=== PATIENT | male | born 1985 ===

== ENCOUNTER 2025-03-18 16:41 | Inpatient (IN) | payer MEDICAID ==
[~2025-03-18] VITALS: Ht 167.6 cm; Wt 110.9 kg
--- NOTE | 2025-03-18 16:46 | ELECTROCARDIOGRAPH REPORT ---
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
[2025-03-18] MEDS: HEPARIN DRIP INITAL BOLUS --- DO NOT GIVE/ORDER MC ONE ×2 (17:02→17:47)
--- NOTE | 2025-03-18 17:06 | Physician Documentation ---
History of Present Illness ~ Chief Complaint: Chest Pain Stated Complaint: FEVER Time Seen by MD: 16:47 Mode of Arrival: EMS, Stretcher HPI This is a 39-year-old gentleman with a known prior history of polysubstance abuse, coronary artery disease, status post NSTEMI several years ago with a stent placed by Dr. Toro at [facility], presents for evaluation of NSTEMI diagnosed at [facility]. He went there because earlier this morning he developed sharp chest pain accompanied by shortness a breath. The particular palliating or aggravating factors. He has a normal EKG, normal troponin and a renal presentation, 2nd troponin pain back as one. It did attempt to treat his pain with the nitroglycerin. We received a call from suddenly with the hospital after the patient had arrived when his repeat troponin is 2.78. At the time of my examination the patient is pain-free. He is on methadone, but denies use of sympathomimetics at this time. Medication Reconciliation Allergies: Coded Allergies: No Known Allergies (Unverified , 03/18/25) Review of Systems ROS 10 point review of systems was performed and unless noted above in HPI is negative for acute process/complaint. Physical Exam Vital Signs: Heart Rate: 69, Respiratory Rate: 13, BP: 149/90, Weight: 110.900 Oxygen Flow Rate: 0 Physical Exam GENERAL: Awake, alert, oriented, GCS 15, no apparent distress, non-toxic appearing, answers questions, follows commands appropriately. Examined in bed 14. Immediately upon arrival. HEENT: Atraumatic, normocephalic, pupils equal, extraocular muscles intact, sclerae anicteric, mucus membranes moist, oropharynx is clear, no stridor. NECK: supple, full active range of motion, trachea midline, no thyromegaly, no lymphadenopathy, no JVD. CARDIOVASCULAR: regular rate/rhythm, no murmurs/gallops/rubs, Pulses are 2+ in all extremities and symmetric. Capillary refill less than 2 seconds. PULMONARY: Nonlabored, good air movement ,no respiratory distress, speaking in full sentences, clear to auscultation bilaterally, no wheezing, no ronchi, no rales, no accessory muscle use. GASTROINTESTINAL: Soft, non-tender, non-distended, normal active bowel sounds, no organomegaly, no pulsatile masses, no CVA tenderness. NEUROLOGIC: Lucid with normal mental status. Normal facial symmetry. Moves all extremities symmetrically and with purpose. No truncal ataxia. Speech is fluid without evidence of dysarthria or aphasia, no focal deficits appreciated. MUSCULOSKELETAL: There is full range of motion of all extremities. There is no joint pain or joint swelling or joint erythema. There is no muscle pain or tenderness or swelling. EXTREMITIES: warm, well-perfused, no cyanosis, no clubbing, no edema, no acute deformities. Skin: warm, dry, no rashes or lesions, no jaundice, no petechiae orpurpura. No ecchymosis. PSYCHIATRIC: Normal affect, normal insight, normal concentration. Focused exam: Gynecomastia noted Progress Results/Orders Results/Orders Orders - CAM BARBOZA DO Chest,Single View (03/18/25 16:43) Monitor (03/18/25 16:43) Saline Lock (03/18/25 16:43) Oxygen (03/18/25 16:43) Cbc/Diff (03/18/25 16:43) BMP (03/18/25 16:43) PBNP (03/18/25 16:43) Hs Troponin I W Calculations (03/18/25 16:43) Hs Troponin I W Calculations (03/18/25 18:43) Hs Troponin I W Calculations (03/18/25 19:43) Cardiac Ptt (03/18/25 16:43) Pt Inr (03/18/25 16:47) PTT (03/18/25 16:47) Heparin 25,000 Unit/250ml Bag (Heparin 2 (03/18/25 16:50) Heparin 10,000 Unit/Ml 1ml (Heparin 10,0 (03/18/25 16:50) Cbc/Diff (03/19/25 03:00) Cbc/Diff (03/20/25 03:00) Cbc/Diff (03/21/25 03:00) Cbc/Diff (03/22/25 03:00) Cbc/Diff (03/23/25 03:00) Completed Orders - CAM BARBOZA DO Electrocardiogram (03/18/25 16:43) No Initial Heparin Drip Bolus (No Initia (03/18/25 16:50) No Initial Heparin Drip Bolus (No Initia (03/18/25 16:50) Vital Signs 03/18/25 03/18/25 16:43 16:56 Pulse 69 Resp 19 13 B/P (MAP) 149/90 O2 Flow Rate 0 Medical Decision Making Findings Facility Status: ED Holds, E process The plan was discussed with the patient, who demonstrates clear understanding of the plan and is in agreement with the plan unless otherwise noted in the chart. All questions have been answered, all concerns were addressed unless otherwise documented. I was available throughout their ED stay for frequent reassessment and questions. Differential Diagnoses (considered and possible or likely): [Differential diagnosis considered includes chest wall pain, pleurisy, pneumonia, pulmonary e mbolus, GERD, esophagitis, gastritis, anxiety, stress reaction, costochondritis, acute coronary syndrome, aortic dissection, pericarditis, myocarditis, or pneumothorax.] ??Differential Diagnoses (considered and unlikely, not requiring evaluation currently): [Aortic/great vessels dissection was considered but it is unlikely based on absence of ripping, tearing, migratory chest pain, absence of syncope or focal neurologic deficits, physical examination indicating equal and symmetric pulses.] MDM Data Please see [facility] for the following: Independent Historians and external Records Review. Historian: [Patient] Independent Historians: ?[Records from [facility]] Medication Management: [Reviewed medication list] Social History and determinants: [Reviewed] Please see the body of the note for the following: Any independent interpretations of ECG, imaging studies. All vitals signs/haemodynamics, ordered tests were independently reviewed and interpreted by myself. Nursing triage complaint and vitals reviewed, additional nursing notes were reviewed as available and I agree unless otherwise noted or documented in contradiction in the chart Vital Signs: Independently reviewed Labs: Independently interpreted Imaging: Independently interpreted Old Medical Records: Independently reviewed, see [facility] for relevant summary and information Pulse Oximetry: [97%] interpreted as [normal on room air] by me [Professor Of Fine Art: [Regular Rate, Regular rhythm, no ectopy, NSR] reviewed and interpreted by me] Additionally notably showing: [Hemodynamically stable] Tests considered but not ordered include: [Catheterization can be done on an inpatient basis] Social Determinants of Health Impact: Patient was evaluated in [facility] [place] access to healthcare due to below par ratio of patient to medical providers. [] Comorbid Conditions Impacting Present Evaluation and Care/Treatment: [Known CAD] Management Discussions with other Healthcare Providers: [Hospitalist regarding admission] Treatment and Disposition Medication Management (Given or considered): [Heparin drip]. See EMR for details Consideration for Hospitalization/Escalation/Deescalation of Care: Admission for observation has been considered, and appears to be necessary other management of his NSTEMI ?ED Course:?[No clinical deterioration. Remains pain-free.] ?Shared decision making:?[] Code status:?FULL Please see the full Electronic Medical Record for full details of nursing documentation, medications list, other records of complete past medical history and conditions, vital signs, laboratory studies, and any radiologic study interpretations by radiologists. Portions of this note were completed using [employer] dictation software and as a result there may exist minor errors in brennanstevie juan francisco. I have reviewed elements of past family and social history and agree as included in note. Departure Disposition: ADMITTED INPATIENT Impression: Primary Impression: NSTEMI (non-ST elevated myocardial infarction) Additional Impressions: Elevated d-dimer Methadone dependence Condition: Stable Referrals: NO PRIMARY CARE PROVIDER (PCP) Critical Care Note Critical Care Note CRITICAL CARE TIME: [ 35] minutes Treatments/Evaluations: Close monitoring and treatment of unstable vital signs, cardiorespiratory, and neurologic status, while maintaining tight balance of fluid, respiratory, and cardiac interventions. This time includes discussing the case with the patient and the patients family. This time does not include all procedures stated elsewhere in this record. This time also includes reviewing old records, labs and radiological studies. This time includes examining and re- examining the patient. Additionally, this time also includes arranging care with admitting and consulting physicians. Signature Scribe Signature: No scribe Attestation: This note accurately reflects clinical decisions, work performed by myself, Cam Barboza, CAM YU DO Mar 18, 2025 17:06
[2025-03-18 17:20] LABS: MEAN PLATELET VOLUME 10.4 FL (7.4-10.4); RED CELL DISTRIBUTION WIDTH 14.0 % (11.5-14.5)
--- NOTE | 2025-03-18 17:25 | RADIOLOGY REPORT ---
EXAM: DI CHEST,SINGLE VIEW HISTORY: CP TECHNIQUE: 1 view of the chest COMPARISON: None FINDINGS/IMPRESSION: LUNGS: No pleural effusion, consolidation, or pneumothorax MEDIASTINUM: Unremarkable BONES: No acute osseous abnormality OTHER: None
[2025-03-18] MEDS ORDERED: potassium Cl 40MEQ/1/2NS 520ml 520 ML IV PRN (17:30)
[2025-03-18] MEDS ORDERED: magnesium sulf-water 4G/100mL 100 ML IV PRN (17:30)
[2025-03-18] MEDS ORDERED: mag hydrox/Alum hydrox/simeth 30ml oral suspension PO PRN (17:30)
[2025-03-18] MEDS ORDERED: HYDROcodone/acetaminophen 5mg/325mg tablet PO PRN (17:30)
[2025-03-18] MEDS ORDERED: potassium Cl 20 mEq SR tablet PO PRN ×2 (17:30)
[2025-03-18] MEDS ORDERED: heparin 10,000 units/1 ML INJ IV PRN (17:30)
[2025-03-18] MEDS ORDERED: heparin 25,000 UNIT/250ml bag 250 ML IV PRN (17:30)
[2025-03-18] MEDS ORDERED: magnesium hydroxide 30ml (MOM) UD suspension PO PRN (17:30)
[2025-03-18] MEDS ORDERED: magnesium sulf-water 2g/50mL 50 ML IV PRN (17:30)
[2025-03-18 17:41] LABS: CREATININE 0.76 MG/DL (0.60-1.10); PRO BRAIN NATRIURETIC PEPTIDE 213 PG/ML (0-125); TOTAL CARBON DIOXIDE 31.9 MMOL/L (24-32); eCRCL 120 ML/MIN; eGFR > 90 ML/MIN
[2025-03-18] MEDS: PERFLUTREN PROTEIN-A MICROSPHR (Optison) 0.22 MG/ML 3ML VIAL IV ONE (17:51)
[2025-03-18] MEDS: normal saline 1000ml 1,000 ML IV SCH (17:51)
[2025-03-18] MEDS: MESSAGE TO NURSING IV ONE ×2 (17:57→22:10)
[2025-03-18] MEDS: heparin 25,000 UNIT/250ml bag 250 ML IV PRN (17:58)
[2025-03-18] MEDS ORDERED: CLOP-32 PO (18:00)
[2025-03-18] MEDS ORDERED: CARV-50 PO (18:00)
[2025-03-18 18:20] LABS: APTT 30 SECONDS (22-32); INR 1.0 INR
--- NOTE | 2025-03-18 18:40 | CARDIOLOGY REPORT ---
APPROVED REPORT EXAM: Comprehensive 2D, Doppler, and color-flow Echocardiogram. Patient Location: ER RM 14 Blood Pressure: 149/90 mmHg Heart Rate: 61 bpm Rhythm: Sinus Indications Coronary Artery Disease Myocardial Infarction Polysubstance abuse HX of NSTEMI Stent x 1, 10/06/23 STORES DESPATCH HAND: Jenae Toro MD NO Previous ECHO 2D Dimensions LA Diam 3.0 cm IVSd 1.2 (0.7-1.1cm) LVDd 4.5 cm PWd 1.1 (0.7-1.1cm) IVSs 1.4 (0.8-1.2cm) LVDs 2.5 (2.5-4.0cm) PWs 2.0 (0.8-1.2cm) LVOT Diameter 2.20 (1.8-2.4cm) LVEF(%) 75.6 (>50%) Ao Asc Diam. 3.45 cm IVC 15.48 mm FS (%) 44.3 % SV 71.0 ml CO 4.3 L/min M-Mode Dimensions Left Atrium(MM) 3.01 (2.5-4.0cm) Aortic Root 3.34 (2.2-3.7cm) Aortic Cusp Exc 1.81 (1.5-2.0cm) MV EPSS 2.0 (<0.5cm) Aortic Valve AoV Peak Bj. 115.1 cm/s AoV VTI 23.6 cm AO Peak GR. 5.3 mmHg AO Mean GR. 3 mmHg LVOT VTI 20.59 cm LVOT Peak Bj. 87.9 cm/s SHANNAN(VTI)/BSA 3.30 cm2/m2 SHANNAN (VTI) 3.30 cm2 Mitral Valve MV E Velocity 93.0 cm/s MV Peak Gr. 8 mmHg MV DECEL TIME 208 ms MV A Velocity 115.5 cm/s MV PHT 60 ms E/A Ratio 0.8 MVA (PHT) 3.67 cm2 MV VMax 138.6 cm/s TDI Lateral E' P. V 5.96 cm/s E/Lateral E' 15.6 Pulmonary Valve PAEDP 13.34 mmHg Tricuspid Valve TR P. Velocity 131 cm/s RAP ESTIMATE 10 mmHg TR Peak Gr. 7 mmHg RVSP 17 mmHg LEFT VENTRICLE Normal LV size and function. Mild concentric hypertrophy. LVEF is 65-70%. RIGHT VENTRICLE Right ventricle is mildly dilated with adequate funciton. ATRIA The left atrium size is normal. AORTIC VALVE Trileaflet AV appears mildly sclerotic without stenosis. No insufficiency. MITRAL VALVE Mitral valve leaflets are thickened with mild mitral annular calcification. No stenosis. Trace regurgitation. TRICUSPID VALVE The tricuspid valve is normal in structure with trace regurgitation. PULMONIC VALVE The pulmonary valve is normal in structure with mild insufficiency. GREAT VESSELS The aortic root is normal in size. The ascending aorta is normal in size. The IVC is normal in size and collapses >50% with inspiration. PERICARDIUM Normal pericardium. No effusion. Other Information Study Quality: Adequate Conclusion Normal LV size and function. Mild concentric hypertrophy. LVEF is 65-70%. Right ventricle is mildly dilated with adequate funciton. The left atrium size is normal. Trileaflet AV appears mildly sclerotic without stenosis. No insufficiency. Mitral valve leaflets are thickened with mild mitral annular calcification. No stenosis. Trace regurgitation. The tricuspid valve is normal in structure with trace regurgitation. The pulmonary valve is normal in structure with mild insufficiency. Normal pericardium. No effusion.
[2025-03-18] MEDS: K and/or MAG REPLACEMENT MC SCH (20:00)
[2025-03-18] MEDS: docusate sod 100mg capsule PO SCH (20:00)
[2025-03-18 21:16] LABS: LDL CHOLESTEROL 154 MG/DL (50-100)
[2025-03-18 21:34] LABS: CHOL/HDL RATIO 6.6 (0.00-4.99)
--- NOTE | 2025-03-18 21:51 | HISTORY AND PHYSICAL ---
History & Physical Providers to CC ~ History of Present Illness Reason for Admit\Complaint: NSTEMI History of Present Illness This is a 39-year-old male who has known coronary artery disease and had 100% proximal LAD lesion as well as multiple other lesions and angioplasty and stent occurred on 10/07/[address] Toro principle software engineer's. Is transferred today from [facility] ED the patient had chest pain upon rising this morning that was substernal and was mild and resolved with nitroglycerin the patient denies any diaphoresis, nausea or shortness of breath. At [facility] the patient is troponin was 2.78 and the patient was transferred to [facility] on a heparin drip- the patient's high sensitivity troponin was 5129 in his up trending the patient is triglycerides of 171 with a total cholesterol of 238 and an LDL of 154. I did consult Dr. Espinal principle software engineer- the patient received atorvastatin Allergies: Coded Allergies: No Known Allergies (Unverified , 03/18/25) Home Medications Home Medications Active Reported Coreg* (Carvedilol) 12.5 Mg Tablet 1 Tab PO Q12H 30 Days Plavix (Clopidogrel Bisulfate) 75 Mg Tablet 75 Mg PO DAILY Do not stop medication unless instructed by prescriber. Past Medical History Past Medical History Coronary artery disease Acute [place] Cardiomyopathy Hypertension Obesity Kidney stones Past Surgical History Surgical History Comment Pilonidal cyst surgery Cystoscopy for kidney stones Family History Family History: FH: stomach cancer Maternal grandfather Past Social History Social History Comment Smokes 3rd a pack of cigarettes a day, denies alcohol use, history of heroin use quit three years ago, last methamphetamine use was in October of 2023. Full code status ROS ROS Except for positives in the HPI the rest of the 14 point review systems is negative Exam Vitals: Vital Signs Date Time Temp Pulse Resp B/P (MAP) Pulse Ox O2 Delivery O2 Flow Rate FiO2 03/18/25 19:24 98.0 63 18 124/78 (93) 97 0 03/18/25 19:19 Room Air* 21 General: Gen. No acute distress alert and oriented 4, obese Lungs clear to ascultation bilaterally, no wheezes rales or rhonchi appreciated Heart normal sinus rhythm no murmurs rubs or clicks noted Abdomen soft nontender bowel sounds are normoactive Lower extremities no clubbing cyanosis, nor edema appreciated bilaterally Diagnostic Data Last Recorded Lab Results: 03/18/25 1656 03/18/25 1656 Diagnostic Data: Laboratory Tests Test 03/18/25 16:56 Prothrombin Time 10.4 SECONDS (9.0-12.0) INR International Normalized Ratio 1.0 INR Activated Partial Thromboplast Time 30 SECONDS (22-32) APTT (Heparin Protocol) 30 SECONDS (45-60) L Coagulation Comments Counseling Services Smoking & Tobacco Cessation: 3-10 Minutes Advance Care Planning Advanced Care plannin - 30 Minutes Problems: (1) NSTEMI (non-ST elevated myocardial infarction) Status: Acute Additional Plan # NSTEMI Continue serial troponins Echocardiogram is ordered On a heparin drip Given aspirin as well Dr. Espinal principle software engineer will evaluate the patient in the morning # cardiomyopathy Echocardiogram Med rec is pending # history of heroin use disorder On methadone to be continued # hyperlipidemia Continue atorvastatin increased to 80 mg # Tobacco abuse-I spent 12 minutes discussing smoking cessation with the patient including the risk of continuing smoke: Lung cancer, stroke, heart attack, #1. Cause of erectile dysfunction, The expense of smoking cigarettes and how cigarettes have been scientifically engineered to be as addictive as humanly possible. The patient has accepted a 14 mg nicotine patch. I spent a total of 17 minutes on reviewing various resuscitative measures/ ACP with the patient at the time of admission. The patient has decided on full code status Date of Service: Mar 18, 2025 Billing Provider: ABE ESTRADA DO Common Visit Codes: 10127-EMKOMRT INP/OBS CARE (HIGH) Secondary Visit Codes: 77952-SXIMA CHNG SMOKING >10MIN, 00055-[id number] CARE PLAN 30 MINUTES ABE ESTRADA DO Mar 18, 2025 21:51
[2025-03-18] MEDS: heparin 10,000 units/1 ML INJ IV PRN (22:10)
[2025-03-18] MEDS: aspirin 325mg tablet, delayed-release (Ecotrin) PO ONE (22:13)
[2025-03-18 22:50] VITALS: BP 150/84; PULSE 66; RESP 16; TEMP 97.9; O2SAT 97
[2025-03-19] VITALS (18 sets, daily range): BP systolic 117–154; BP diastolic 67–98; PULSE 63–84; RESP 12–19; TEMP 97.2–98.2; O2SAT 93–99
[2025-03-19 05:06] LABS: MEAN PLATELET VOLUME 10.5 FL (7.4-10.4); RED CELL DISTRIBUTION WIDTH 14.4 % (11.5-14.5)
[2025-03-19 05:22] LABS: CHOL/HDL RATIO 6.3 (0.00-4.99); CREATININE 0.76 MG/DL (0.60-1.10); LDL CHOLESTEROL 159 MG/DL (50-100); TOTAL CARBON DIOXIDE 26.6 MMOL/L (24-32); eCRCL 120 ML/MIN; eGFR > 90 ML/MIN
[2025-03-19] MEDS: MESSAGE TO NURSING IV ONE ×3 (05:58→21:31)
[2025-03-19] MEDS ORDERED: METH10OR11 PO (07:09)
[2025-03-19] MEDS: nicotine 14mg patch - 24hr TD SCH (08:15)
[2025-03-19] MEDS: methadone 10mg tablet PO SCH (09:38)
[2025-03-19] MEDS: methadone 5mg tablet PO SCH (10:01)
--- NOTE | 2025-03-19 10:57 | ELECTROCARDIOGRAPH REPORT ---
[facility] Test Date: 2025-03-19 Test Time: 10:55:36 Pat Name: DELANEY MCCALL Department[facility] Patient ID: [facility]-[id number] Room: [place] [address] [address] Gender: M Floor Associate: : 1985 Requested By: ERIN MURGUIA Order Number: [id number] Reading MD: Dr. JONG Murguia Measurements Intervals [place] Rate: 60 P: 39 MA: 166 QRS: 36 QRSD: 104 T: 95 QT: 483 QTc: 483 Interpretive Statements Sinus rhythm Nonspecific T abnormalities, lateral leads ST elev, probable normal early repol pattern Borderline prolonged QT interval Electronically Signed On 03-19-2025 16:49:[address] JONG Murguia Please click the below link to view image of tracing.
--- NOTE | 2025-03-19 12:01 | CONSULTATION REPORT - RESIDENT ---
Consult Providers to CC Resident Creating Document: RADAMES DISHAJIGAR Orellana RES History of Present Illness Reason for Admit\Complaint: Chest pain History of Present Illness 39-year-old male patient came to the hospital with chief complaint of chest pain. The patient was transferred from [facility] due to chest pain and evidence of rising troponins. The patient describes that this chest pain is at the level of the left side of the chest, which started yesterday after he woke up. The patient states that this is the 1st time that he had experienced this pain, scaled as 6/10 in intensity without radiation, similar but less intense from the chest pain that he experienced when he had a coronary artery disease. As per medical records from coronary angiogram that the patient underwent at [facility] Dr. Toro he has 100% proximal LAD occlusion involving the takeoff of a small diagonal. In addition there is a 35% ostial narrowing in the LAD and areas of mild disease in the mid to distal LAD as well. The patient received an stent 3.5 x 22 mm travis [employer] drug-eluting stent and based on OCT. And other areas of disease including the mild proximal circumflex stenosis and moderate disease in two branches of the principal obtuse marginal was found. RCA was 50-55% midvessel stenosis and some areas of [id number] disease in the posterolateral artery. We were consulted due to the presence of chest pain with a elevated troponins. Allergies: Coded Allergies: No Known Allergies (Unverified , 03/18/25) Home Medications Home Medications Active Reported Methadone (Methadone Hcl) 10 Mg/Ml Oral.conc 95 Mg PO DAILY Coreg* (Carvedilol) 12.5 Mg Tablet 1 Tab PO Q12H 30 Days Plavix (Clopidogrel Bisulfate) 75 Mg Tablet 75 Mg PO DAILY Do not stop medication unless instructed by prescriber. Past Medical History Past Medical History Coronary artery disease Acute [place] Cardiomyopathy Hypertension Obesity Kidney stones Past Surgical History Surgical History Comment Pilonidal cyst surgery Cystoscopy for kidney stones Family History Family History: FH: diabetes mellitus MOTHER FH: stomach cancer Maternal grandfather FH: stroke FATHER Exam Vitals: Vital Signs Date Time Temp Pulse Resp B/P (MAP) Pulse Ox O2 Delivery O2 Flow Rate FiO2 03/19/25 11:00 97.2 64 16 119/68 (85) 99 Room Air 03/19/25 08:25 0.0 21 Physical exam: General: Well alert, well oriented, not confused, not agitated, not in acute distress, well cooperated during the physical. HEENT: Conjunctive are pink, sclerae clear, no icterus, pupil is equal in both sides, reactive to light, no ear discharge, no pharyngeal erythema or an edema. Neck: Supple, no JVD, no lymphadenopathy and thyromegaly. Chest: Equal air entry on both lungs, no additional sounds no rhonchi no wheezing at the moment. Cardiovascular: S1-S2 regular sinus rhythm and, regular rate, no gallops, no rubs, no murmurs Abdomen: No visible peristalsis, Bowel sounds present on auscultation, soft, nontender, no guarding, no rigidity Extremities: No obvious deformities, no pitting edema bilaterally, capillary refill intact, peripheral pulsations are intact on both sides Central Nervous System: No focal neurological deficits, no motor or sensory weakness in all 4 extremities, could move all 4 extremities, 2+ deep tendon reflexes, negative Babinski. Musculoskeletal: No joint swelling, deformities, inflammations, and no scoliosis and back tenderness Skin: Warm and dry. Diagnostic Data Last Recorded Lab Results: 03/19/25 0445 03/19/25 0445 Diagnostic Data: Laboratory Tests Test 03/18/25 16:56 03/19/25 04:45 Prothrombin Time 10.4 SECONDS (9.0-12.0) INR International Normalized Ratio 1.0 INR Activated Partial Thromboplast Time 30 SECONDS (22-32) APTT (Heparin Protocol) 40 SECONDS (45-60) L Coagulation Comments Additional Plan Assessment and plan: 39-year-old male patient came to the hospital with chief complaint of chest pain. NSTEMI: The patient came to the hospital with chief complaint of chest pain. EKG, without signs of ST elevation. Troponin levels: [id number]. Echocardiogram: Normal LV size and function. Mild concentric hypertrophy. LVEF is 65-70%. Right ventricle is mildly dilated with adequate funciton. The left atrium size is normal. Plan: Aspirin 81 mg daily. Atorvastatin 80 mg daily. Carvedilol 12.5 mg b.i.d.. Clopidogrel 75 mg daily. Continue heparin drip. Plan for coronary angiogram this afternoon. Risks and benefits explained to the patient who agreed to proceed with coronary angiogram. Other comorbidities: H/O heroin use disorder Dyslipidemia: The patient is currently on atorvastatin. Hypertension Disposition: Plan for coronary angiogram this afternoon. Risks and benefits explained to the patient who agreed to proceed with coronary Jigar Vega Internal Medicine Resident [facility] Date of Service: Mar 19, 2025 Billing Provider: ERIN MURGUIA MD, FRANCO LUIS, RES Mar 19, 2025 12:01
[2025-03-19] MEDS ORDERED: LIDOcaine 1% (10mg/ml) 2ml vial ONE (16:16)
[2025-03-19] MEDS ORDERED: verapamil 2.5 mg/ml inj IV ONE (16:16)
[2025-03-19] MEDS ORDERED: fentaNYL/PF 50MCG/1 ML 2ML syringe ONE (16:17)
[2025-03-19] MEDS ORDERED: iohexol 350 MG/ML 50ML vial IV ONE (16:17)
[2025-03-19] MEDS ORDERED: heparin 1,000unit/ml 10ml vial 10 ML ONE (16:17)
[2025-03-19] MEDS ORDERED: midazolam 1 mg/ML 2ml injection ONE (16:17)
[2025-03-19] MEDS ORDERED: nitroGLYCERIN 500mcg/5mL D5W 5 ML IV ONE (16:25)
--- NOTE | 2025-03-19 21:14 | PROGRESS NOTE ---
Daily Progress Note Providers to CC ~ Antibiotic Timeout Antibiotic Ordered?: No Subjective The patient went for cardiac catheterization this afternoon awaiting support group manager's report- I evaluated the patient in the a.m.- the patient was sitting up eating and had no complaints and was chest pain-free Objective Vital Signs Date Time Temp Pulse Resp B/P (MAP) Pulse Ox O2 Delivery O2 Flow Rate FiO2 03/19/25 18:05 69 16 133/91 (105) 97 Room Air 03/19/25 15:00 98.2 03/19/25 08:25 0.0 21 Result Diagram: 03/19/255 03/19/25444 Gen. No acute distress alert and oriented 4, obese Lungs clear to ascultation bilaterally, no wheezes rales or rhonchi appreciated Heart normal sinus rhythm no murmurs rubs or clicks noted Abdomen soft nontender bowel sounds are normoactive Lower extremities no clubbing cyanosis, nor edema appreciated bilaterally Coagulation Studies Laboratory Tests Test 03/18/25 16:56 03/19/25 17:07 03/19/25 19:23 Prothrombin Time 10.4 SECONDS (9.0-12.0) INR International Normalized Ratio 1.0 INR Activated Partial Thromboplast Time 30 SECONDS (22-32) Activated Clotting Time 153 SEC (101-148) H APTT (Heparin Protocol) 52 SECONDS (45-60) Coagulation Comments Problem\Assessment\Plan Problems/Diagnosis: (1) NSTEMI (non-ST elevated myocardial infarction) # NSTEMI Continue serial troponins Echocardiogram is ordered On a heparin drip Given aspirin as well Dr. Espinal support group manager took the patient for cardiac catheterization this afternoon awaiting Cardiology report # cardiomyopathy Echocardiogram demonstrated an LVEF of 65-70% with mild concentric hypertrophy of the left ventricle # history of heroin use disorder On methadone to be continued # hyperlipidemia Continue atorvastatin increased to 80 mg # Tobacco abuse-I spent 12 minutes discussing smoking cessation with the patient including the risk of continuing smoke: Lung cancer, stroke, heart attack, #1. Cause of erectile dysfunction, The expense of smoking cigarettes and how cigarettes have been scientifically engineered to be as addictive as humanly possible. The patient has accepted a 14 mg nicotine patch. Date of Service: Mar 19, 2025 Billing Provider: ABE ESTRADA DO Common Visit Codes: [id number] INP/OBS CARE(HIGH) ABE ESTRADA DO Mar 19, 2025 21:14
[2025-03-19] MEDS: ondansetron/PF 4mg/2ml inj IV PRN (23:28)
[2025-03-19] MEDS: HYDROcodone/acetaminophen 10/325mg tab PO PRN (23:35)
[2025-03-20] VITALS (17 sets, daily range): BP systolic 102–159; BP diastolic 68–114; PULSE 54–75; RESP 12–20; TEMP 97–97.5; O2SAT 93–99
[2025-03-20 01:05] LABS: MEAN PLATELET VOLUME 10.2 FL (7.4-10.4); RED CELL DISTRIBUTION WIDTH 13.9 % (11.5-14.5)
[2025-03-20 01:21] LABS: CREATININE 0.76 MG/DL (0.60-1.10); TOTAL CARBON DIOXIDE 27.7 MMOL/L (24-32); eCRCL 120 ML/MIN; eGFR > 90 ML/MIN
[2025-03-20] MEDS: MESSAGE TO NURSING IV ONE ×3 (01:45→15:41)
[2025-03-20] MEDS ORDERED: METHADONE HCL PO SCH (08:00)
[2025-03-20] MEDS ORDERED: midazolam 1 mg/ML 2ml injection ONE ×2 (14:27→15:55)
[2025-03-20] MEDS ORDERED: LIDOcaine 1% 30ml preserv. free vial ONE (14:27)
[2025-03-20] MEDS ORDERED: heparin 1,000unit/ml 10ml vial 10 ML ONE (14:28)
[2025-03-20] MEDS ORDERED: fentaNYL/PF 50MCG/1 ML 2ML syringe ONE (14:28)
[2025-03-20] MEDS ORDERED: nitroGLYCERIN 500mcg/5mL D5W 10 ML IV ONE (14:33)
[2025-03-20] MEDS ORDERED: atropine 0.1mg/ml 10ml syringe ONE (15:38)
[2025-03-20] MEDS ORDERED: iohexol 350 MG/ML 50ML vial IV ONE (16:30)
[2025-03-20] MEDS ORDERED: clopidogrel 300mg tablet ONE (16:36)
--- NOTE | 2025-03-20 18:00 | CARDIOLOGY REPORT ---
DATE OF SERVICE: 03/20/2025 DICTATING PHYSICIAN: JONG Espinal MD CORONARY INTERVENTION REPORT PMD: [facility] in [facility] in [place]. CUSTODIAL MANAGER: JONG Espinal MD GENDER: Male. AGE: 39 years. HEIGHT: 168 cm. WEIGHT: 111 kg. BODY SURFACE AREA: 2.18 m2. INDICATION: The patient is a 39-year-old, morbidly obese male with prior history of PTCA stenting of the proximal LAD with a 3.5 x 22 mm Adah stent at [facility] when he came in with acute UT 3.5 x 22, it was post dilated to 4 mm. Now, the patient has hypertension, hyperlipidemia, cardiomyopathy, obesity, renal stones; however, he is somewhat noncompliant, stopped taking his medication for cholesterol, Lipitor, a long time ago when he presented with his peak troponin. It started at 5120, peaked at 6640. After discussing risks, benefits, and alternatives, the patient underwent coronary angiography on 03/19/2025, found to have a mid LAD, somewhat relatively small, 80% narrowing, mid RCA 70%, and distal posterolateral branch 80% narrowing. After discussing risks, benefits, alternative options, the patient underwent coronary stenting today. Risks, benefits, alternative options discussed. Informed consent obtained. Yesterday, during coronary angiography, radial access did not give adequate support, and hence, the coronary intervention via right femoral approach, 6-Montserratian right femoral artery sheath. PROCEDURE: The patient underwent coronary intervention from the right femoral approach, 6-Montserratian right femoral artery sheath, closed with a 6-Montserratian Perclose. The patient tolerated the procedure well. Complications none. PROCEDURES DONE: * Ultrasound-guided right femoral artery visualization and access. * Right femoral arteriography. * PTCA stenting of the mid LAD. * PTCA stenting of the posterolateral branch close to distal bifurcation. * PTCA stenting of the mid RCA. * Conscious sedation of 75 minutes. COMPLICATIONS: None. DESCRIPTION OF PROCEDURE: After adequate heparinization, PTCA stenting was carried out. PTCA STENTING OF THE MID LAD: A 6-Montserratian LAD 4 guide without sidehole gave good support. The lesion was crossed with a PT2 moderate wire. The mid LAD lesion was angioplastied with a 2.0 x 12 mm balloon at 8 atmospheric pressure. The long mid LAD lesion was stented with a 2.0/26 mm Hussein Starkweather stent at 12 atmospheric pressure. The proximal three-fourth of the stent was postdilated with a 2.5 mm NC angel Trek balloon with good antegrade flow. Post-procedure 0% residual with MICHAEL 3 flow. PTCA STENTING OF THE DISTAL AND MID RCA: A 6-Montserratian XB RCA guide without sidehole gave good support. The lesion was crossed with a PT2 moderate wire. A wire placed in the PDA, another one placed in the posterolateral branch. Both the distal and mid lesions were angioplastied with a 3.5 x 12 mm Trek balloon at 8 atmospheric pressure. The posterolateral lesion close to the distal bifurcation was stented with a 5 x 15 Hussein Starkweather stent across the of the PDA. It was deployed at 12 atmospheric pressure. Post-procedure 0% residual with MICHAEL 3 flow. The PDA ostium looked clean with no compromise. The mid RCA lesion was stented with a 5 x 18 mm Resolute Hussein Starkweather stent deployed at 14 atmospheres. Post-procedure 0% residual with MICHAEL 3 flow. The patient tolerated the procedure well. Complications none. IMPRESSION: A 39-year-old male with 80% mid LAD lesion, successfully angioplastied and stented with a 2.0/26 mm Resolute Hussein Starkweather stent. The proximal three-fourth of the stent was postdilated with a 2.5 mm noncompliant balloon with 0% residual stenosis and MICHAEL 3 flow. Distal RCA/posterolateral 80% narrowing close to the RCA bifurcation, successfully angioplastied and stented with 5 x 15 mm Resolute Hussein stent across the PDA ostium with 0% residual stenosis and MICHAEL 3 flow. Mid RCA 70% narrowing, successfully angioplastied and stented with 5 x 18 mm Resolute Hussein stent with 0% residual stenosis and MICHAEL 3 flow. RECOMMENDATIONS: Recommended continued aggressive coronary risk factor modification, namely low-fat, low-cholesterol diet, maintaining ideal body weight, 30 minutes of exercise every day, keeping LDL less than 55 mg%, and blood pressure control. JONG Espinal MD TID: [id number] RECEIPT: [id number] /LOVE cc: [facility]
--- NOTE | 2025-03-20 18:08 | ELECTROCARDIOGRAPH REPORT ---
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 JONG Murguia Measurements Intervals [place] Rate: 57 P: 45 MA: 172 QRS: 43 QRSD: 114 T: 87 QT: 493 QTc: 480 Interpretive Statements Sinus rhythm Probable left atrial enlargement Anteroseptal infarct, old Electronically Signed On 03-20-2025 20:36:[address] JONG Murguia Please click the below link to view image of tracing.
--- NOTE | 2025-03-20 21:35 | PROGRESS NOTE ---
Daily Progress Note Providers to CC ~ Antibiotic Timeout Antibiotic Ordered?: No Subjective I evaluated the patient in the morning prior to cardiac catheterization I did speak to the patient has mother again and went evaluated the patient post catheterization the patient was asleep Objective Vital Signs Date Time Temp Pulse Resp B/P (MAP) Pulse Ox O2 Delivery O2 Flow Rate FiO2 03/20/25 18:00 72 138/85 (102) 97 Room Air 0.0 21 03/20/25 15:02 97.0 14 Result Diagram: 03/20/255403/20/25 005 Gen. No acute distress alert and oriented 4, obese Lungs clear to ascultation bilaterally, no wheezes rales or rhonchi appreciated Heart normal sinus rhythm no murmurs rubs or clicks noted Abdomen soft nontender bowel sounds are normoactive Lower extremities no clubbing cyanosis, nor edema appreciated bilaterally Coagulation Studies Laboratory Tests Test 03/18/25 16:56 03/20/25 16:37 03/20/25 20:56 Prothrombin Time 10.4 SECONDS (9.0-12.0) INR International Normalized Ratio 1.0 INR Activated Partial Thromboplast Time 30 SECONDS (22-32) Activated Clotting Time 205 SEC (101-148) H Coagulation Comments Problem\Assessment\Plan Problems/Diagnosis: (1) NSTEMI (non-ST elevated myocardial infarction) # NSTEMI Continue serial troponins Echocardiogram is ordered On a heparin drip Given aspirin as well Dr. Espinal interlocking and signal mechanic took the patient for cardiac catheterization this afternoon awaiting Cardiology report 03/20 * Ultrasound-guided right femoral artery visualization and access. * Right femoral arteriography. * PTCA stenting of the mid LAD. * PTCA stenting of the posterolateral branch close to distal bifurcation. * PTCA stenting of the mid RCA. # cardiomyopathy Echocardiogram demonstrated an LVEF of 65-70% with mild concentric hypertrophy of the left ventricle # history of heroin use disorder On methadone to be continued # hyperlipidemia Continue atorvastatin increased to 80 mg # Tobacco abuse-I spent 12 minutes discussing smoking cessation with the patient including the risk of continuing smoke: Lung cancer, stroke, heart attack, #1. Cause of erectile dysfunction, The expense of smoking cigarettes and how cigarettes have been scientifically engineered to be as addictive as humanly possible. The patient has accepted a 14 mg nicotine patch. Disposition: Anticipate discharge in the a.m. Date of Service: Mar 20, 2025 Billing Provider: ABE ESTRADA DO Common Visit Codes: [id number] INP/OBS CARE(HIGH) ABE ESTRADA DO Mar 20, 2025 21:35
[2025-03-21 02:00] VITALS: BP 98/57; PULSE 64; RESP 12; TEMP 97.8; O2SAT 95
[2025-03-21 06:00] VITALS: BP 118/71; PULSE 64; RESP 19; TEMP 97; O2SAT 98
[2025-03-21] MEDS ORDERED: normal saline 1000ml 1,000 ML IV SCH (06:00)
[2025-03-21 07:04] LABS: MEAN PLATELET VOLUME 10.3 FL (7.4-10.4); RED CELL DISTRIBUTION WIDTH 13.7 % (11.5-14.5)
[2025-03-21 07:27] LABS: CREATININE 1.15 MG/DL (0.60-1.10); TOTAL CARBON DIOXIDE 31.5 MMOL/L (24-32); eCRCL 79 ML/MIN; eGFR 72 ML/MIN
[2025-03-21 08:20] VITALS: RESP 16; O2SAT 99
[2025-03-21] MEDS ORDERED: NICO-631 TD (08:41)
[2025-03-21] MEDS ORDERED: CARV-50 PO (08:41)
[2025-03-21] MEDS ORDERED: CLOP-32 PO (08:41)
[2025-03-21] MEDS ORDERED: ATOR-429 PO (08:41)
[2025-03-21] MEDS ORDERED: ASPI81TA53 PO (08:41)
--- NOTE | 2025-03-21 10:07 | ELECTROCARDIOGRAPH REPORT ---
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 JONG Murguia Measurements Intervals [place] Rate: 65 P: 67 [place]: 167 QRS: 80 QRSD: 113 T: 97 QT: 458 QTc: 477 Interpretive Statements Sinus rhythm Probable lateral infarct, age indeterminate Borderline ST elevation, anterior leads Baseline wander in lead(s) V2 Electronically Signed On 03-21-2025 14:44:[address] JONG Murguia Please click the below link to view image of tracing.
--- NOTE | 2025-03-21 10:26 | PROGRESS NOTE ---
Progress Note Cardiology Providers to CC ~ Subjective Subjective Patient seen and examined this morning. Overall he is doing well. No chest pain or shortness of breath. EKG this morning looks stable. Spoke with patient and his mom. Objective Result Diagram: 03/21/2542 03/21/25 06 Objective General: Normal body habitus, no acute distress, HEENT: Sclerae clear, PERRL, gums without lesions or bleeding, oropharynx clear without erythema or exudate. Neck: Supple without enlargement of the thyroid, or lymphadenopathy, Chest: Normal size and shape, no tenderness, nonlabored breathing, Breath sounds clear to auscultation. Heart: Regular in rate and rhythm, S1 and S2 normal, no S3-S4 or murmurs. Abdomen: Soft, nontender, no organomegaly, bowel sounds present. Extremities: No edema cyanosis or clubbing. Coagulation Studies Laboratory Tests Test 03/18/25 16:56 03/20/25 16:37 03/20/25 20:56 Prothrombin Time 10.4 SECONDS (9.0-12.0) INR International Normalized Ratio 1.0 INR Activated Partial Thromboplast Time 30 SECONDS (22-32) Activated Clotting Time 205 SEC (101-148) H APTT (Heparin Protocol) 37 SECONDS (45-60) L Coagulation Comments Problem\Assessment\Plan Additional Plan 1. 39-year-old male patient came to the hospital with chief complaint of chest pain. Patient had coronary angiography on and underwent coronary intervention on 03/20/2025. PTCA stenting of mid LAD with 2 /26 mm resolute travis stent, posterolateral branch close to RCA bifurcation with 5/15 resolute Travis stent. And mid RCA with 5/18 resolute travis stent with 0% restless to stenosis and good antegrade flow. Importance of uninterrupted anti platelet therapy with aspirin and Plavix at least for one year emphasized to the patient. 2. Hypertension hyperlipidemia: Counseled on coronary risk factor modification. Keep LDL less than 55 mg % and systolic blood pressure less than 130 mm of mercury. 3. Prior history of methamphetamine and heroin abuse: Currently on methadone program 4. Morbid obesity with possible sleep apnea: Recommend sleep study evaluation When diet weight loss and exercise program. ERIN MURGUIA MD Mar 21, 2025 10:26
--- NOTE | 2025-03-21 20:31 | DISCHARGE SUMMARY ---
Discharge Summary Providers to CC ~ Discharge Summary Admission Diagnosis: NSTEMI Hospital Course DATE OF ADMISSION: 03/18/2025 DATE OF DISCHARGE: 03/21/2025 Discharge Diagnosis\Comment: NSTEMI, cardiomyopathy, history of heroin use disorder, hyperlipidemia, tobacco use disorder Operations\Procedures: Coronary angiogram x2 with angioplasty and stents to the LAD, posterolateral branch close to the distal bifurcation and mid RCA Consultants: Dr. Espinal line tester's Complications: None Condition on DC: Stable New Medications: Aspirin (Children's Aspirin) 81 Mg Tab.chew 162 MG PO DAILY@0830, #60 TAB.CHEW Atorvastatin Calcium* (Lipitor*) 80 Mg Tablet 1 TAB PO DAILY for 30 Days, #30 TAB 2 Refills Nicotine 14 MG Patch* (Habitrol 14 MG Patch*) 1 Each Patch.td24 1 PATCH TD DAILY, #28 PATCH Do not smoke while on a nicotine patch as this could markedly elevate your blood pressure and you could have a stroke Continued Medications: Carvedilol* (Coreg*) 12.5 Mg Tablet 1 TAB PO Q12H for 30 Days, #60 TAB 2 Refills (This prescription has been renewed) Clopidogrel Bisulfate (Plavix) 75 Mg Tablet 75 MG PO DAILY for ACUTE CORONARY SYNDROME/NSTEMI, #30 TAB 2 Refills (This prescription has been renewed) Do not stop medication unless instructed by prescriber. Methadone Hcl (Methadone) 10 Mg/Ml Oral.conc 95 MG PO DAILY, ML Discharge Summary: I admitted the patient with the following HPI:This is a 39-year-old male who has known coronary artery disease and had 100% proximal LAD lesion as well as multiple other lesions and angioplasty and stent occurred on 10/07/[address] Toro line tester's. Is transferred today from [facility] ED the patient had chest pain upon rising this morning that was substernal and was mild and resolved with nitroglycerin the patient denies any diaphoresis, nausea or shortness of breath. At [facility] the patient is troponin was 2.78 and the patient was transferred to [facility] on a heparin drip- the patient's high sensitivity troponin was 5129 in his up trending the patient is triglycerides of 171 with a total cholesterol of 238 and an LDL of 154. I did consult Dr. Espinal line tester- the patient received atorvastatin- the patient is on heparin drip the following morning the patient went for an angiogram and had several tight lesions that were not amenable to a CABG however went back and performed a another angiogram on the and performed the following procedures: * Ultrasound-guided right femoral artery visualization and access. * Right femoral arteriography. * PTCA stenting of the mid LAD. * PTCA stenting of the posterolateral branch close to distal bifurcation. * PTCA stenting of the mid RCA. The patient has a history of cardiomyopathy however on his echocardiogram the patient has a LVEF of 65-70% mild concentric hypertrophy both ventricles The patient has hyperlipidemia and his atorvastatin was increased to 80 mg The patient is fasting lipid panel demonstrated triglycerides of 180 total cholesterol of 222 with an LDL of 159 and HDL of 35. The patient smokes about half a pack of cigarettes a day and I did spend approximately 12 minutes discussing smoking cessation on both 03/20 and 03/21 Gen. No acute distress alert and oriented 4 Lungs clear to ascultation bilaterally, no wheezes rales or rhonchi appreciated Heart normal sinus rhythm no murmurs rubs or clicks noted Abdomen soft nontender bowel sounds are normoactive Lower extremities no clubbing cyanosis, nor edema appreciated bilaterally The patient felt ready to be discharged and was medically cleared to be di scharged on 03/21/2025 the patient will follow up with the line tester's The patient was seen and evaluated on day of discharge. Time spent on discharge 40 minutes *Problems/Diagnosis: (1) NSTEMI (non-ST elevated myocardial infarction) Status: Acute Total Time Spent on D/C: > 30 Minutes Date of Service: Mar 21, 2025 Billing Provider: ABE ESTRADA DO Common Visit Codes: [id number]-[id number]/OBS DISCH DAY >30min ABE ESTRADA DO Mar 21, 2025 20:30
--- NOTE | 2025-03-22 03:58 | CARDIOLOGY REPORT ---
DATE OF SERVICE: 03/19/2025 DICTATING PHYSICIAN: JONG Espinal MD CARDIAC CATHETER REPORT GENDER: Male. AGE: 39 years. HEIGHT: 167 cm. WEIGHT: 110 kilos. BODY SURFACE AREA: 2.16 m2. INDICATION: The patient is a 39-year-old morbidly obese male with prior history of acute anterior myocardial infarction with an totally occluded proximal LAD, which was successfully angioplastied and stented by Dr. Toro in [facility] with a 3.5/22 mm Theodore stent post dilated to 4 mm. The patient also has history of hypertension, hyperlipidemia, cardiomyopathy, obesity and renal stones. The patient stopped taking his cholesterol medications some time ago. The patient was hospitalized here at [facility] on 03/18/2025. He was transferred to the [facility], with chest pain, 12/15, subsequently transferred to the [facility] ER. He was found to have elevated troponin, which peaked at 6640. After discussing the risks, benefits and alternative options, the patient elected to undergo coronary angiography. Risks, benefits and alternative options were discussed and informed consent obtained. PROCEDURES DONE: * Ultrasound-guided right radial artery visualization and access. * Left heart catheterization. * LVG. * Coronary cineangiography. * Conscious sedation time for 30 minutes. PROCEDURE TECHNIQUE: The patient underwent left heart cath via right radial approach, 6-Japanese right radial sheath. Post-procedure access site hemostasis secured with right radial band. The patient tolerated the procedure well. COMPLICATIONS: None. FINDINGS: HEMODYNAMICS: Aortic systolic 117, diastolic 71, mean 92 mmHg. LVEDP of 24 mmHg. There is no significant gradient across the aortic valve. LEFT VENTRICULOGRAM: Overall left ventricular systolic function is about 65%. CORONARY CINEANGIOGRAPHY: Left main coronary artery engaged with a JL3.5 catheter from the right radial approach. The with minimal disease. LAD is a medium caliber vessel arising from the bifurcation of left main coronary artery and courses through the anterior interventricular groove and ends at the apex. The proximal LAD stent is patent. There is 30% narrowing in the proximal LAD. The LAD after the diagonal 2 becomes very small in caliber, less than 2 mm in diameter, with 80% narrowing at the LAD diagonal junction. Diagonal I is 2.5-mm caliber with mild luminal irregularities. Diagonal II is 2-mm caliber with mild luminal irregularities. The circumflex artery is a medium caliber vessel arising from the bifurcated left main coronary artery and courses in the left AV groove. Other areas of 40% narrowing in the proximal mid circumflex artery continues as OM, which both branches are diffusely severely diseased. Right coronary artery is a medium caliber vessel arising from the right aortic sinus, courses through the right AV groove and ends at the posterior crux by dividing into PDA and a posterolateral branch. It is an ectatic vessel. Mid RCA has 70% narrowing. The distal RCA and posterolateral branch has 80% narrowing very close to the bifurcation involving some of the bifurcation. Some of the posterolateral branches have severe diffuse disease. The bigger branches appeared to have nonobstructive disease. IMPRESSION: A 39-year-old male with an ejection fraction of 65%. LVEDP of 24 mmHg, with no gradient across the aortic valve. Left main normal, proximal LAD 30% narrowing, mid distal LAD 80% narrowing, proximal mid circumflex 40% narrowing, severe disease in OM branches, mid RCA with 70% narrowing, distal RCA near bifurcation in the posterolateral branch 80% narrowing. The options of medical therapy versus coronary stenting, risks, benefits, alternative options and discussion in detail with the patient. At this time, he prefers to proceed with a coronary stenting. We will arrange for the same. JONG Espinal MD TID: [id number] RECEIPT: [id number] NATIVIDAD/JILLIAN/MARISOL cc: [facility]
== END 2025-03-21 11:30 | disposition home or self-care (01) | DRG 174 ==
LOC: ER 16:42 → ED HOLD 17:35 → PCU 3S 22:25
PROVIDERS: ADMIT Family Medicine; ATTEND Family Medicine
PROC: 4A023N7 Measurement of Cardiac Sampling and Pressure, Left Heart, Percutaneous Approach (ICD-10-PCS; 2025-03-19)
PROC: B2111ZZ Fluoroscopy of Multiple Coronary Arteries using Low Osmolar Contrast (ICD-10-PCS; 2025-03-19)
PROC: B2151ZZ Fluoroscopy of Left Heart using Low Osmolar Contrast (ICD-10-PCS; 2025-03-19)
PROC: 027136Z Dilation of Coronary Artery, Two Arteries with Three Drug-eluting Intraluminal Devices, Percutaneous Approach (ICD-10-PCS; principal; 2025-03-20)
DX: I21.4 Non-ST elevation (NSTEMI) myocardial infarction (principal); I42.9 Cardiomyopathy, unspecified; I10 Essential (primary) hypertension; I25.10 Atherosclerotic heart disease of native coronary artery without angina pectoris; E78.5 Hyperlipidemia, unspecified; F11.20 Opioid dependence, uncomplicated; E66.01 Morbid (severe) obesity due to excess calories; F17.210 Nicotine dependence, cigarettes, uncomplicated; Z87.442 Personal history of urinary calculi; Z71.6 Tobacco abuse counseling; Z80.0 Family history of malignant neoplasm of digestive organs; Z68.39 Body mass index [BMI] 39.0-39.9, adult; I25.2 Old myocardial infarction
CPT/HCPCS: 36415; 71045; 76937; 80048; 80053; 80061; 83735; 83880; 84484; 85025; 85347; 85610; 85730; 87081; 93005; 93306; 93458; 96365; 96376; 97116; 97161; 97530; 99152; 99153; 99291; A6258; C1725; C1751; C1760; C1769; C1874; C1894; C9600; C9601; G0378; J0461; J1200; J1644; J2003; J2250; J2405; J3010; J3490; J7030; Q9967